=== PATIENT | female | born 1990 | race Asian ===

== ENCOUNTER 2019-03-02 05:11 | Emergency (ER) | payer OTHER ==
[~2019-03-02] VITALS: Ht 160 cm; Wt 62.6 kg
[~2019-03-02 05:11] MED LIST: CIPR500T94 PO; DOCU-109 PO; HYDR-3164 PO; NAPR-677 PO
[2019-03-02] MEDS ORDERED: HYDR25SU18 RC (05:40)
[2019-03-02] MEDS ORDERED: SENN-121 PO (05:43)
--- NOTE | 2019-03-02 05:44 | PHYS DOC ---
Past Medical History Past Medical History: No Pertinent History Past Surgical History: No Surgical History Alcohol Use: None Drug Use: None Adult General Chief Complaint Chief Complaint: CONSTIPATION HPI HPI 29-year-old female presents with report of several day history of rectal pain. Reports some problems with constipation. Denies nausea or vomiting. Denies fever or chills. Denies . Review of Systems Review of Systems Constitutional: Denies fever or chills Eyes: Denies redness or eye pain HENT: Denies nasal congestion or sore throat Respiratory: Denies cough or shortness of breath Cardiovascular: Denies chest pain or palpitations GI: Denies abdominal pain, nausea, or vomiting; reports rectal pain and swelling : Denies dysuria or hematuria Musculoskeletal: Denies back pain or joint pain Integument: Denies rash or skin lesions Neurologic: Denies headache, focal weakness or sensory changes Complete systems were reviewed and found to be within normal limits, except as documented in this note. Current Medications Current Medications Current Medications Medications (Trade) Dose Ordered Sig/Praveen Start Time Stop Time Status Last Admin Dose Admin Lidocaine/ Epinephrine (LIDOCAINE 2%-EPI 1:100,000 multi-dose) 20 ml 1X ONCE 03/02/19 06:00 03/02/19 06:01 DC 03/02/19 05:45 20 ML Allergies Allergies Allergies Coded Allergies Type Severity Reaction Last Updated Verified No Known Drug Allergies 05/03/13 No Physical Exam Physical Exam Constitutional: Well developed, well nourished, uncomfortable, non-toxic appearance HENT: Normocephalic, atraumatic, oropharynx moist Eyes: Conjunctiva normal, no discharge Neck: Normal range of motion, no tenderness, supple Cardiovascular: Heart rate normal, regular rhythm Lungs & Thorax: Bilateral breath sounds clear to auscultation, no wheezing Abdomen: Soft, no tenderness, no guarding/rebound tenderness/distention Rectal: External thrombosed hemorrhoid noted at 3o'clock position Skin: Warm, dry, no erythema, no rash Extremities: No tenderness, ROM intact, no edema Neurologic: Alert and oriented X 3, no focal deficits noted Psychologic: Affect normal, judgement normal, Current Patient Data Vital Signs Vital Signs Date Time Temp Pulse Resp B/P (MAP) Pulse Ox O2 Delivery O2 Flow Rate FiO2 03/02/19 05:19 97.7 100 18 116/75 (89) 99 Room Air 97.7 EKG EKG [] Radiology/Procedures Radiology/Procedures [] Course & Med Decision Making Course & Med Decision Making Patient presents with history of present illness and physical exam consistent for thrombosed hemorrhoid. I&D performed. Patient with interval improvement. Patient stable for discharge with outpatient follow-up with PCP. Discussed findings and plan with patient and family, who acknowledge understanding and agreement. Dragon Disclaimer Dragon Disclaimer This electronic medical record was generated, in whole or in part, using a voice recognition dictation system. Incision and Drainage Incision and Drainage : Site: Rectal- thrombosed hemorrhoid Blade Size: 15 blade Progress Verbal consent obtained. Time out performed. Hand hygiene utilized. Wound cleaned with ChloraPrep. Anesthesia obtained via a 25-gauge hypodermic needle with (3) mL's of lidocaine 2% with epinephrine. Ellipical incision performed with 15 blade scalpel with removal of external hemorroid roof. Blood clots removed with curved Michelle clamp. Copious irrigation performed. Patient tolerated procedure well and without difficulty. Departure Departure Impression: Primary Impression: Thrombosed external hemorrhoid Disposition: 01 HOME, SELF-CARE Condition: STABLE Referrals: NO PCP (PCP) Patient Instructions: Hemorrhoidectomy, Care After, Hemorrhoids, [id number] Additional Instructions: Use SITZ salts bath twice daily for next 1 week. Please clean rectum in shower after any bowel movement. Scripts Sennosides/Docusate Sodium (Colace 2-in-1 Tablet) 1 Each Tablet 1 TAB PO QHS PRN for CONSTIPATION, #30 TAB 0 Refills Prov: PRIYA OROZCO DO 03/02/19 Hydrocortisone Acetate (ANUSOL-HC) 25 Mg Supp.rect 1 SUPP RC BID for 7 Days, #14 SUPP 0 Refills Prov: PRIYA OROZCO DO 03/02/19 PRIYA OROZCO DO Mar 02, 2019 05:43
[2019-03-02] MEDS ORDERED: LIDOCAINE 2%/EPI 1:100,000 20 ML VIAL. IJ ONE (06:00)
[2019-03-02 06:15] VITALS: BP 115/72
== END 2019-03-02 06:25 | disposition home or self-care (01) ==
LOC: ER 05:11
DX: K64.5 Perianal venous thrombosis (principal); K59.00 Constipation, unspecified
CPT/HCPCS: 46083; 99284; J3490